=== PATIENT | female | born 1960 | race Caucasian/White ===

== ENCOUNTER 2017-03-31 09:16 | Observation (INO) ==
--- NOTE | 2017-03-31 10:46 | Emergency Department Note ---
Disposition Clinical Impression: Lactic acid blood increased, Tremors of nervous system Leukocytosis Qualifiers: Leukocytosis type: unspecified Qualified Code(s): D72.829 - Elevated white blood cell count, unspecified Disposition: Admitted As Inpatient Condition: Fair Referrals: Keisha Beckett CNP [Primary Care Provider] - Forms: Work/School Release, ED Satisfaction Letter General Adult HPI - General Chief complaint: ED General Medical Stated complaint: Shaking hands/dropping things Time Seen by Provider: 03/31/17 09:36 Source: patient Limitations: no limitations Nursing Notes Reviewed: Yes Vital Signs Reviewed: Yes - History of Present Illness HPI Narrative: I did review the previous record, the patient does take Neurontin and Wellbutrin as well as other medications. She presents with generalized tremors which have been going on for several months but worse the last several days. Does feel like she was dropping objects but this is not localized to the either right or left hand. She does have a primary care doctor who prescribes her medications. She states she has not taken either Neurontin or Wellbutrin today. I did look at the pill bottle and felt 90 Neurontin 300 mg capsules on March 29 and I did count the pills and there were 78 left. She denies any slurred speech, facial droop, confusion, numbness or unilateral weakness of the extremities. No fever, vomiting, blood in the urine or stool. She denies any head, neck, chest, abdomen or back. Social history: No smoking, alcohol, no history of intravenous drug use Pain Scale: 6 - Related Data Home Medications Medication Instructions Recorded Confirmed Cyclobenzaprine [Flexeril] 10 mg PO TID PRN 05/13/16 03/31/17 Levothyroxine [Synthroid] 100 mcg PO QAM 05/13/16 03/31/17 Lisinopril [Zestril] 40 mg PO DAILY 05/13/16 03/31/17 Calcium Carbonate [Tums] 1,000 mg PO Q4HR PRN 07/01/16 03/31/17 Estrogen, Con/M-Proges Acet 1 tab PO DAILY 07/01/16 03/31/17 [Prempro 0.625-2.5 mg Tablet] Meloxicam [Mobic] 15 mg PO DAILY 07/01/16 03/31/17 Multivit-Min/FA/Lycopen/Lutein 1 tab PO DAILY 03/31/17 03/31/17 [Centrum Silver Tablet] Previous Rx's Medication Instructions Recorded Ondansetron [Zofran] 4 mg PO Q8HR #20 tablet 05/17/16 Gabapentin [Neurontin] 300 mg PO TID #90 capsule 07/05/16 Allergies Allergy/AdvReac Type Severity Reaction Status Date / Time pregabalin [From Lyrica] AdvReac See Verified 03/31/17 09:29 Comments Past Medical History - Past Medical History Medical history: Reports: hypertension, thyroid disease Surgical history: Reports: cholecystectomy Psychiatric history: Reports: depression - Social History Smoking Status: Current every day smoker Smokeless Tobacco Status: Yes Alcohol use: Reports: none Drug use: Reports: none Physical Exam CONSTITUTIONAL: Well-appearing; well-nourished; A&O X3, in no apparent distress , no tremors HEAD: Normocephalic; atraumatic. EYES: PERRL, EOMI, no scleral icterus, no nystagmus NOSE: The nose is normal in appearance without rhinorrhea NECK: Supple without rigidity, no ADRIANA RESP: Normal chest excursion with respiration; breath sounds clear and equal bilaterally; no wheezes, rhonchi, or rales CARD: Regular rhythm, without murmurs, rub or gallop ABD: Non-distended; non-tender, soft, without rigidity, rebound or guarding SKIN: Normal for age and race; warm and dry; no apparent lesions, no rash NEUROLOGICAL: Patient is alert and oriented times three. Cranial nerves III- XII are intact. Sensory and motor functions are intact. Strength is 5/5 for flexion and extension in all 4 extremities. Patellar DTRS are equal and intact. Finger to nose testing is equal and normal bilaterally. - General Limitations: no limitations General appearance: alert Course Vital Signs Temperature 98.2 F 03/31/17 09:29 Pulse Rate 72 03/31/17 09:29 Respiratory Rate 20 03/31/17 09:29 Blood Pressure 103/66 03/31/17 09:29 O2 Sat by Pulse Oximetry 95 03/31/17 09:29 Temperature 98.2 F 03/31/17 09:29 Pulse Rate 72 03/31/17 09:29 Respiratory Rate 20 03/31/17 09:29 Blood Pressure 103/66 03/31/17 09:29 O2 Sat by Pulse Oximetry 95 03/31/17 09:29 Oxygen Delivery Oxygen Delivery Room Air Medical Decision Making - MDM Narrative Medical decision making narrative: The patient currently does not have any tremors and I did have her hold both her hands out she did not have a tremor. She is speaking normally. This could be medication related but I do not suspect intracranial mass or hemorrhage or stroke or other life-threatening abnormality. Labs are ordered and if these are negative the patient will be discharged home to follow up with primary care. [id number] I did review the patient's test results and does have significant leukocytosis so I added on a lactate and it turns out that that is elevated also so I ordered a urine which does show bacteriuria but many squamous epithelial cells as well as a chest x-ray which is negative. She does have some minimal elevation in the creatinine level was could indicate that she does have dehydration and IV fluids are ordered. Patient does have blood cultures and I did write for a dose of Zosyn. The patient will be admitted to the hospital for further evaluation. I do not suspect bacterial meningitis or surgical intra -abdominal process. I did speak with the hospitalist who accepts patient for admission 1327 I did speak with the hospitalist who came down to the emergency department to see the patient in on his exam he does have abdominal pain with palpation so requests a abdomen and pelvis CT scan with oral contrast and I did order the test. 1333 - Medical Records Medical records reviewed: Yes I reviewed the patient's medical records. - Lab Data Lab results reviewed: Yes I reviewed the patient's lab results. Result diagrams: 03/31/17 10:49 03/31/17 11:28 Lab Results 03/31/17 03/31/17 03/31/17 Range/Units 10:49 10:49 11:27 WBC 19.9 H (4.3-11.1) K/mcL RBC 4.32 (3.82-4.97) M/mcL Hgb 12.7 (11.5-15.4) g/dL Hct 38.7 (35.3-44.9) % MCV 89.6 (83.0-100.0) fL MCH 29.4 (28.0-33.3) pg MCHC 32.8 (31.6-35.5) g/dL RDW 13.8 (11.5-14.5) % Plt Count 319 (140-400) K/mcL MPV 8.6 L (9.4-12.4) fL Sodium (136-145) mEq/L Potassium (3.5-4.5) mEq/L Chloride (98-109) mEq/L Carbon Dioxide (19-29) mEq/L BUN (7-20) mg/dL Creatinine (0.57-1.11) mg/dL Est GFR ( Amer) (> 60) Est GFR (Non-Af Amer) (> 60) BUN/Creatinine Ratio (6-26) Glucose (70-99) mg/dL Calculated Osmolality (280-300) Lactic Acid 3.4 H (0.5-2.2) mmol/L Calcium (8.6-10.8) mg/dL TSH (0.350-4.840) mcIU/mL Free T4 (0.70-1.48) ng/dl Urine Color (Yellow) Urine Clarity (Clear) Urine pH (5.0-8.0) pH Units Ur Specific [place] (1.010-1.025) Urine Protein (Neg-Trace) mg/dL Urine Glucose (UA) (Normal) mg/dL Urine Ketones (Negative) mg/dL Urine Blood (Negative) Urine Nitrite (Negative) Urine Bilirubin (Negative) Urine Urobilinogen (Normal) mg/dL Ur Leukocyte Esterase (Negative) Urine Microscopic RBC (0-3) per hpf Urine Microscopic WBC (0-3) per hpf Ur Squamous Epith Cells (None-Few) per lpf Urine Bacteria (None-Few) per hpf Hyaline Casts (None-Few) per lpf Specimen Rejected Hemolyzed 03/31/17 03/31/17 03/31/17 Range/Units 11:28 11:28 11:45 WBC (4.3-11.1) K/mcL RBC (3.82-4.97) M/mcL Hgb (11.5-15.4) g/dL Hct (35.3-44.9) % MCV (83.0-100.0) fL MCH (28.0-33.3) pg MCHC (31.6-35.5) g/dL RDW (11.5-14.5) % Plt Count (140-400) K/mcL MPV (9.4-12.4) fL Sodium 129 L (136-145) mEq/L Potassium 4.7 H (3.5-4.5) mEq/L Chloride 98 (98-109) mEq/L Carbon Dioxide 22 (19-29) mEq/L BUN 19 (7-20) mg/dL Creatinine 1.37 H (0.57-1.11) mg/dL Est GFR ( Amer) 48 L (> 60) Est GFR (Non-Af Amer) 40 L (> 60) BUN/Creatinine Ratio 14 (6-26) Glucose 95 (70-99) mg/dL Calculated Osmolality 270 L (280-300) Lactic Acid (0.5-2.2) mmol/L Calcium 10.1 (8.6-10.8) mg/dL TSH 1.150 (0.350-4.840) mcIU/mL Free T4 0.51 L (0.70-1.48) ng/dl Urine Color Yellow (Yellow) Urine Clarity Cloudy A (Clear) Urine pH 5.5 (5.0-8.0) pH Units Ur Specific [place] 1.020 (1.010-1.025) Urine Protein Negative (Neg-Trace) mg/dL Urine Glucose (UA) Normal (Normal) mg/dL Urine Ketones Negative (Negative) mg/dL Urine Blood Negative (Negative) Urine Nitrite Negative (Negative) Urine Bilirubin Negative (Negative) Urine Urobilinogen Normal (Normal) mg/dL Ur Leukocyte Esterase Trace H (Negative) Urine Microscopic RBC 0-3 (0-3) per hpf Urine Microscopic WBC 0-3 (0-3) per hpf Ur Squamous Epith Cells Many H (None-Few) per lpf Urine Bacteria Moderate H (None-Few) per hpf Hyaline Casts None Seen (None-Few) per lpf Specimen Rejected - Radiology Data Radiology results reviewed: Yes I reviewed the patient's radiology results.
[2017-03-31 10:55] LABS: Hematocrit 38.7 % (35.3-44.9); Hemoglobin 12.7 g/dL (11.5-15.4); Mean Corpuscular HGB Conc 32.8 g/dL (31.6-35.5); Mean Corpuscular Hemoglobin 29.4 pg (28.0-33.3); Mean Corpuscular Volume 89.6 fL (83.0-100.0); Mean Platelet Volume 8.6 fL (9.4-12.4); Platelet Count 319 K/mcL (140-400); Red Blood Count 4.32 M/mcL (3.82-4.97); Red Cell Distribution Width 13.8 % (11.5-14.5)
[2017-03-31 11:51] LABS: Calcium 10.1 mg/dL (8.6-10.8); Potassium 4.7 mEq/L (3.5-4.5)
[2017-03-31 11:56] LABS: Bilirubin,Urine Negative (Negative); Blood,Urine Negative (Negative); Clarity,Urine Cloudy (Clear); Color,Urine Yellow (Yellow); Glucose,Urine (UA) Normal (Normal); Ketones,Urine Negative (Negative); Leukocyte Esterase,Urine Trace (Negative); Nitrite,Urine Negative (Negative); PH,Urine 5.5 pH Units (5.0-8.0); Protein,Urine Negative (Neg-Trace); Urobilinogen,Urine Normal (Normal)
[2017-03-31 11:59] LABS: Bacteria,Urine Moderate per hpf (None-Few); Hyaline Casts,Urine None Seen per lpf (None-Few); Squamous Epithelial Cell,Urine Many per lpf (None-Few); WBC,Urine 0-3 per hpf (0-3)
[2017-03-31 12:10] LABS: RBC,Urine 0-3 per hpf (0-3)
[2017-03-31 12:15] LABS: Thyroid Stimulating Hormone 1.15 mcIU/mL (0.350-4.840)
[2017-03-31] MEDS ORDERED: 0.9 % Sodium Chloride 1,000 ML IVC ONE ×2 (12:26→12:27)
[2017-03-31] MEDS ORDERED: Piperacillin/Tazobactam 4.5 GM in D5% in Water (Mini-Bag+) 100 ML IVPB ONE (12:31)
--- NOTE | 2017-03-31 13:47 | Event Note ---
Date of Encounter: 03/31/17 Time of Encounter: 13:44 1. Consider possible acute diverticulitis/colitis versus possible acute appendicitis Abdominal pain with elevated white blood cell count and elevated lactic acid, chronic diarrhea. Keep nothing by mouth, start IV ciprofloxacin and Flagyl. IV fluids CT scan of the abdomen with contrast, consider surgical consult depending on CT scan findings 2. Acute renal failure likely secondary to dehydration, continue IV fluids 3. History of ADHD 4. Hypothyroidism 5. Lactic acidosis next 6. Chronic hyponatremia 7. Hypertension, stable Protonix IV for GI prophylaxis and subcutaneous heparin for DVT prophylaxis. Patient will be admitted for observation. Her status may be switched to inpatient depending on findings. Time spent on this admission 40 minutes. H&P will be performed by EMMY Sanchez
[2017-03-31] MEDS ORDERED: Ondansetron ODT 4 MG TAB.RAPDIS SL PRN (14:03)
[2017-03-31] MEDS ORDERED: Naloxone 0.4 MG/ML INJ IVP PRN (14:03)
[2017-03-31] MEDS ORDERED: Acetaminophen 325 MG TABLET PO PRN (14:03)
--- NOTE | 2017-03-31 14:20 | Internal Med History&Physical ---
<Tonio Rebollar H - Last Filed: 03/31/17 15:17> Date of Encounter: 03/31/17 Internal Medicine - H&P: HPI History of present illness: Ms. Bermeo is a 56 year old female Internal Medicine - H&P: Meds Cyclobenzaprine [Flexeril] 10 mg PO TID PRN 05/13/16 [History] Levothyroxine [Synthroid] 100 mcg PO QAM 05/13/16 [History] Lisinopril [Zestril] 40 mg PO DAILY 05/13/16 [History] Ondansetron [Zofran] 4 mg PO Q8HR #20 tablet 05/17/16 [Rx] Calcium Carbonate [Tums] 1,000 mg PO Q4HR PRN 07/01/16 [History] Estrogen, Con/M-Proges Acet [Prempro 0.625-2.5 mg Tablet] 1 tab PO DAILY [History] Meloxicam [Mobic] 15 mg PO DAILY 07/01/16 [History] Gabapentin [Neurontin] 300 mg PO TID #90 capsule 07/05/16 [Rx] Multivit-Min/FA/Lycopen/Lutein [Centrum Silver Tablet] 1 tab PO DAILY 03/31/17 [ History] Allergies pregabalin [From Lyrica] Adverse Reaction (Verified 03/31/17 09:29) See Comments swells up All Systems PM: A 10-system review of systems was performed and is negative for pertinent findings except as documented above in the HPI. - Constitutional Vitals: Temp Pulse Resp BP Pulse Ox 98.2 F 82 18 120/66 96 03/31/17 09:29 03/31/17 15:05 03/31/17 15:13 03/31/17 15:13 03/31/17 15:05 Internal Med - H&P Results - Labs CBC & Chem 7: 03/31/17 10:49 03/31/17 11:28 - Attending Attestation 1. Consider possible acute diverticulitis/colitis versus possible acute appendicitis Abdominal pain with elevated white blood cell count and elevated lactic acid, chronic diarrhea. Keep nothing by mouth, start IV ciprofloxacin and Flagyl. IV fluids CT scan of the abdomen with contrast, consider surgical consult depending on CT scan findings 2. Acute renal failure likely secondary to dehydration, continue IV fluids 3. History of ADHD 4. Hypothyroidism 5. Lactic acidosis next 6. Chronic hyponatremia 7. Hypertension, stable Protonix IV for GI prophylaxis and subcutaneous heparin for DVT prophylaxis. Patient will be admitted for observation. Her status may be switched to inpatient depending on findings. Time spent on this admission 40 minutes. For this encounter, I have reviewed the [employer] or PA documentation, treatment plan, and medical decision making; and I have had face to face time with this patient. <SanchezCarrie - Last Filed: 03/31/17 19:03> Date of Encounter: 03/31/17 Time of Encounter: 14:16 Assessment and Plan (1) Colitis Current visit: Yes Status: Acute Patient with elevated WBC and lactate. CT abd/pelvis consistent with colitis. Continue cipro and flagyl. Check GI panel. May eat diet as tolerated with low residue, low fat diet. (2) Leukocytosis Current visit: Yes Status: Acute WBC of 19.9, combined with lactic acidosis of 3.4, concern for infection of unknown source. Patient afebrile and VSS. Patient denies cough or dysuria. CXR shows no acute process. UA not overly concerning for infection. Patient with history of colitis and diverticulitis and reports occasional abdominal pain. She has tenderness to palpation on exam. Suspect abdominal etiology of infection. Blood cultures sent CT Abd/Pelvis with oral contrast ordered GI panel stool ordered. Cipro and flagyl IVPB IV fluids 0.9NS at 100mL/hr after 2L bolus. Qualifiers: Leukocytosis type: unspecified Qualified Code(s): D72.829 - Elevated white blood cell count, unspecified (3) CAESAR (acute kidney injury) Current visit: Yes Status: Acute Creatinine 1.37, up from previous of 0.94 in September. Patient reports normal appetite and no diarrhea. May be secondary to infection. 2L fluid bolus ordered by ED, will continue with 0.9NS at 100mL/hr. Hold meloxicam and lisinopril. Recheck chemistry in the morning. (4) Hyponatremia Current visit: Yes Status: Acute Sodium of 129, unchanged from previous value in September. She is getting IV fluids (2L bolus followed by 0.9NS at 100ml/hr). Recheck chemistry in the morning. (5) Lactic acid blood increased Current visit: Yes Status: Acute Lactate of 3.4 today. Likely secondary to infection and dehydration. Will recheck after fluids. (6) Tremors of nervous system Current visit: Yes Status: Acute Patient presented with tremors of bilateral hands, dropping things. May be related to her infection and will see if there is improvement after treatment of infection. CT of head showed no acute abnormality. Patient does take neurontin. (7) DVT prophylaxis Current visit: Yes Status: Acute anti-embolic stockings lovenox SQ daily Internal Medicine - H&P: HPI Chief complaint: tremors Admitted From: Emergency Dept Plans for Post Hospital Care: Home History of present illness: Ms. Bermeo is a 56 year old female with hypertension, hypothyroidism, history of episodes of colitis and diverticulitis, presents to emergency room today with complaints of bilateral hand tremors. Patient reports that her hands have been trembling last week or so, she is been dropping things frequently as well. Patient denies any lightheadedness, dizziness, chest pain, palpitations, shortness of breath or cough. Patient denies any fever or sweats, reports occasional chills last week. Patient denies any nausea or vomiting. She does report occasional abdominal pain, reporting that she has had constipation for the last 4 days but had a bowel movement this morning. Evaluation in the emergency department revealed elevated white blood cell count of 19.9, elevated lactic acid of 3.4, concerning for infection. She also displayed a Ki-1 with creatinine of 1.37, up from previous of 0.94 in September. She was hyponatremic with sodium of 129, although this appears to be a chronic issue with her. Chest x-ray showed no acute process, urinalysis is not overly concerning for infection. CT of the head and CT of the abdomen and pelvis are pending. Blood cultures were drawn and sent. Patient was given 2 L of IV fluids as well as a dose of Zosyn in the emergency department. Suspect abdominal etiology of her infection given her history of colitis, diverticulitis and reports of occasional abdominal pain. On exam, patient alert and oriented, in no acute distress. Heart has regular rate and rhythm, lungs are clear bilaterally to auscultation. Abdomen is soft, with positive bowel sounds in all 4 quadrants, she is tender to palpation, more so in the right and left lower quadrants. No peripheral edema, peripheral pulses intact. Past Med Surg Social Fam HX - Past Medical History Medical history: hypertension, thyroid disease Psychiatric history: depression - Past Surgical History Surgical History: cholecystectomy - Social History Smoking Status: Current every day smoker Smokeless Tobacco Status: Yes Alcohol use: none Drug use: none - Family History Mother Living Status: Hx Family Neurologic Disorders: Yes (Parkinsons) Father Living Status: Still Living Hx Family Cardiac Disorders: Yes (Valvular Disease) All Systems PM: A 10-system review of systems was performed and is negative for pertinent findings except as documented above in the HPI. - Constitutional Constitutional: chills, no fever(s), no night sweats - EENT Eyes: no change in vision, no discharge, no pain, no photophobia Ears: no ear discharge, no ear pain, no tinnitus Nose, mouth and throat: no dysphagia, no nasal discharge, no neck pain, no sore throat - Cardiovascular Cardiovascular ROS IM: no chest pain, no diaphoresis, no dyspnea, no lightheadedness, no palpitations, no syncope - Respiratory Respiratory: no cough, no dyspnea, no wheezing, no excessive phlegm production - Gastrointestinal Gastrointestinal: abdominal pain, constipation, no diarrhea, no hematemesis, no hematochezia, no melena, no nausea, no vomiting - Genitourinary Genitourinary: no change in urinary stream, no dysuria, no flank pain, no hematuria - Musculoskeletal Musculoskeletal ROS IM: no numbness, no tingling - Integumentary Integumentary IM: no rash, no unusual bruising - Neurological Neurological ROS: tremor(s) (bilateral hands), no confusion, no convulsions, no focal weakness, no numbness, no tingling - Hematologic/Lymphatic Hematologic/Lymphatic: no easy bruising - Constitutional Vitals: Temp Pulse Resp BP Pulse Ox 98.2 F 72 20 103/66 95 03/31/17 09:29 03/31/17 09:29 03/31/17 09:29 03/31/17 09:29 03/31/17 09:29 General appearance: Present: A&O X 3, pleasant, no acute distress - Head Head exam: Present: atraumatic, normocephalic - Eye Eye exam: Present: PERRL, conjuntiva pink, sclera anicteric Pupils: Present: PERRL - Neck Neck exam general surgery: Present: supple, trachea midline. Absent: lymphadenopathy - Respiratory Respiratory exam: Present: CTAB. Absent: accessory muscle use, rales, rhonchi, wheezes - Cardiovascular Cardiovascular exam: Present: RRR, +S1, +S2. Absent: diastolic murmur, gallop, rubs, systolic murmur - GI/Abdominal GI/Abdominal exam: Present: normal bowel sounds, soft, tenderness, no peritoneal signs. Absent: distended - Extremities Exam Extremities exam: Present: warm, radial pulses palpable and symetrical. Absent : calf tenderness, cyanotic, pedal edema - Neurological Exam Neurological exam: Present: CN II-XII intact, oriented X3, no focal deficits. Absent: pronater drift, facial droop, speech deficit - Skin Skin exam: Present: dry, intact Internal Med - H&P Results - Labs CBC & Chem 7: 03/31/17 10:49 03/31/17 11:28 Labs: All Lab Results (24 Hours) 03/31/17 03/31/17 03/31/17 Range/Units 10:49 10:49 11:27 WBC 19.9 H (4.3-11.1) K/mcL RBC 4.32 (3.82-4.97) M/mcL Hgb 12.7 (11.5-15.4) g/dL Hct 38.7 (35.3-44.9) % MCV 89.6 (83.0-100.0) fL MCH 29.4 (28.0-33.3) pg MCHC 32.8 (31.6-35.5) g/dL RDW 13.8 (11.5-14.5) % Plt Count 319 (140-400) K/mcL MPV 8.6 L (9.4-12.4) fL Sodium (136-145) mEq/L Potassium (3.5-4.5) mEq/L Chloride (98-109) mEq/L Carbon Dioxide (19-29) mEq/L BUN (7-20) mg/dL Creatinine (0.57-1.11) mg/dL Est GFR ( Amer) (> 60) Est GFR (Non-Af Amer) (> 60) BUN/Creatinine Ratio (6-26) Glucose (70-99) mg/dL Calculated Osmolality (280-300) Lactic Acid 3.4 H (0.5-2.2) mmol/L Calcium (8.6-10.8) mg/dL TSH (0.350-4.840) mcIU/mL Free T4 (0.70-1.48) ng/dl Urine Color (Yellow) Urine Clarity (Clear) Urine pH (5.0-8.0) pH Units Ur Specific [place] (1.010-1.025) Urine Protein (Neg-Trace) mg/dL Urine Glucose (UA) (Normal) mg/dL Urine Ketones (Negative) mg/dL Urine Blood (Negative) Urine Nitrite (Negative) Urine Bilirubin (Negative) Urine Urobilinogen (Normal) mg/dL Ur Leukocyte Esterase (Negative) Urine Microscopic RBC (0-3) per hpf Urine Microscopic WBC (0-3) per hpf Ur Squamous Epith Cells (None-Few) per lpf Urine Bacteria (None-Few) per hpf Hyaline Casts (None-Few) per lpf Specimen Rejected Hemolyzed 03/31/17 03/31/17 03/31/17 Range/Units 11:28 11:28 11:45 WBC (4.3-11.1) K/mcL RBC (3.82-4.97) M/mcL Hgb (11.5-15.4) g/dL Hct (35.3-44.9) % MCV (83.0-100.0) fL MCH (28.0-33.3) pg MCHC (31.6-35.5) g/dL RDW (11.5-14.5) % Plt Count (140-400) K/mcL MPV (9.4-12.4) fL Sodium 129 L (136-145) mEq/L Potassium 4.7 H (3.5-4.5) mEq/L Chloride 98 (98-109) mEq/L Carbon Dioxide 22 (19-29) mEq/L BUN 19 (7-20) mg/dL Creatinine 1.37 H (0.57-1.11) mg/dL Est GFR ( Amer) 48 L (> 60) Est GFR (Non-Af Amer) 40 L (> 60) BUN/Creatinine Ratio 14 (6-26) Glucose 95 (70-99) mg/dL Calculated Osmolality 270 L (280-300) Lactic Acid (0.5-2.2) mmol/L Calcium 10.1 (8.6-10.8) mg/dL TSH 1.150 (0.350-4.840) mcIU/mL Free T4 0.51 L (0.70-1.48) ng/dl Urine Color Yellow (Yellow) Urine Clarity Cloudy A (Clear) Urine pH 5.5 (5.0-8.0) pH Units Ur Specific [place] 1.020 (1.010-1.025) Urine Protein Negative (Neg-Trace) mg/dL Urine Glucose (UA) Normal (Normal) mg/dL Urine Ketones Negative (Negative) mg/dL Urine Blood Negative (Negative) Urine Nitrite Negative (Negative) Urine Bilirubin Negative (Negative) Urine Urobilinogen Normal (Normal) mg/dL Ur Leukocyte Esterase Trace H (Negative) Urine Microscopic RBC 0-3 (0-3) per hpf Urine Microscopic WBC 0-3 (0-3) per hpf Ur Squamous Epith Cells Many H (None-Few) per lpf Urine Bacteria Moderate H (None-Few) per hpf Hyaline Casts None Seen (None-Few) per lpf Specimen Rejected - Impressions ITS Impressions Chest X-Ray 03/31/17 11:04 IMPRESSION: No acute process. D/ / Dejuan Oakes MD / Dejuan Oakes MD Interpreting Provider: Dejuan Oakes MD - Diagnostic Studies Chest x-ray Additional comments: Chest X-Ray 03/31/17 11:04
[2017-03-31] MEDS: Gabapentin 300 MG CAPSULE PO SCH ×2 (16:59→20:30)
[2017-03-31] MEDS: 0.9 % Sodium Chloride 1,000 ML IVC SCH (16:59)
[2017-03-31] MEDS: MetroNIDAZOLE 500 MG/100 ML 500 MG/100 ML BAG IVPB SCH (16:59)
[2017-03-31] MEDS: *HR* HYDROcodone/Acet 5/325 mg TABLET PO PRN (20:31)
[2017-04-01] MEDS: MetroNIDAZOLE 500 MG/100 ML 500 MG/100 ML BAG IVPB SCH ×3 (00:27→20:34)
[2017-04-01] MEDS: *HR* HYDROcodone/Acet 5/325 mg TABLET PO PRN ×4 (00:27→20:42)
[2017-04-01] MEDS: *HR* Enoxaparin 40 MG/0.4 ML SYRINGE SQ SCH (06:15)
[2017-04-01 06:32] LABS: Basophils % 0.2 %; Eosinophils % 0.2 %; Hematocrit 36.7 % (35.3-44.9); Hemoglobin 11.9 g/dL (11.5-15.4); Immature Granulocytes % 0.6 % (0-4); Lymphocytes # 1.1 K/mcL (0.6-4.6); Lymphocytes % 7.3 %; Mean Corpuscular HGB Conc 32.4 g/dL (31.6-35.5); Mean Corpuscular Hemoglobin 28.9 pg (28.0-33.3); Mean Corpuscular Volume 89.1 fL (83.0-100.0); Mean Platelet Volume 8.9 fL (9.4-12.4); Monocytes # 1.2 K/mcL (0.0-1.3); Monocytes % 8.2 %; Neutrophils # 12.4 K/mcL (1.6-8.9); Platelet Count 292 K/mcL (140-400); Red Blood Count 4.12 M/mcL (3.82-4.97); Red Cell Distribution Width 13.9 % (11.5-14.5); Segmented Neutrophils % 83.5 %
[2017-04-01 06:46] LABS: BUN/Creatinine Ratio 8 (6-26); Blood Urea Nitrogen 9 mg/dL (7-20); Calcium 8.8 mg/dL (8.6-10.8); Carbon Dioxide 25 mEq/L (19-29); Chloride 102 mEq/L (98-109); Glucose 129 mg/dL (70-99); Osmolality,Calculated 272 (280-300); Potassium 4.2 mEq/L (3.5-4.5); Sodium 131 mEq/L (136-145); eGFR For African Americans > 60 (> 60); eGFR For Non-African Americans 53 (> 60)
[2017-04-01] MEDS: Prempro 0.625/2.5 MG TABLET PO SCH (07:53)
[2017-04-01] MEDS: Gabapentin 300 MG CAPSULE PO SCH ×3 (07:53→20:43)
--- NOTE | 2017-04-01 15:41 | Internal Med Progress Note ---
Date of Encounter: 04/01/17 Time of Encounter: 08:50 - Assessment and plan (1) Colitis Current Visit: Yes Status: Acute Assessment and plan: Patient presents with abdominal pain, leukocytosis and mild lactic acidosis, noted to have CT changes concerning for nonspecific colitis in transverse and descending colon. Continue bowel rest, IV hydration, IV antibiotics- ciprofloxacin and Flagyl along with supportive care with when necessary antiemetics and pain control. Hold diet at this time. Ischemic versus infective colitis. Will need interval colonoscopy in 4-6 weeks after discharge. (2) Lactic acidosis Current Visit: Yes Status: Resolved Assessment and plan: Improved with IV hydration. (3) Diarrhea Current Visit: Yes Status: Acute Assessment and plan: Reports improvement at this time. Pending stool GI panel. Qualifiers: Diarrhea type: unspecified type Qualified Code(s): R19.7 - Diarrhea, unspecified (4) CAESAR (acute kidney injury) Current Visit: Yes Status: Acute (5) Hyponatremia Current Visit: Yes Status: Chronic Assessment and plan: Patient is noted to have chronic hyponatremia, likely due to the use of SSRIs and psychotropics. Currently improving. (6) Essential hypertension Current Visit: Yes Status: Chronic (7) Hypothyroidism Current Visit: Yes Status: Chronic Qualifiers: Hypothyroidism type: unspecified Qualified Code(s): E03.9 - Hypothyroidism , unspecified (8) Depressive disorder Current Visit: Yes Status: Chronic (9) Anxiety disorder Current Visit: Yes Status: Chronic Qualifiers: Anxiety disorder type: unspecified anxiety disorder Qualified Code(s): F41.9 - Anxiety disorder, unspecified - Subjective Interval history: Reports abdominal pain, improved nausea and diarrhea. No fever, chills, chest pain or shortness of breath. - Constitutional Vitals: Temp Pulse Resp BP Pulse Ox 98.2 F 86 17 98/65 96 04/01/17 15:08 04/01/17 15:08 04/01/17 15:08 04/01/17 15:08 04/01/17 15:08 General appearance: Present: mild distress, A&O X 3, answers questions appropriately - Respiratory Respiratory exam: Present: CTAB. Absent: accessory muscle use, rales, rhonchi, wheezes - Cardiovascular Cardiovascular exam: Present: RRR, +S1, +S2. Absent: diastolic murmur, gallop, rubs, systolic murmur - GI/Abdominal GI/Abdominal exam: Present: normal bowel sounds, soft (Obese, tenderness in upper abdomen and left lower quadrant), no peritoneal signs. Absent: distended , tenderness - Extremities Exam Extremities exam: Present: full ROM, warm, radial pulses palpable and symetrical. Absent: calf tenderness, cyanotic, pedal edema - Neurological Exam Neurological exam: Present: CN II-XII intact, oriented X3, no focal deficits. Absent: pronater drift, facial droop, speech deficit Internal Medicine: Result - Labs CBC & Chem 7: 04/01/17 05:36 04/01/17 05:36 Labs: Short CBC 04/01/17 Range/Units 05:36 WBC 14.9 H (4.3-11.1) K/mcL Hgb 11.9 (11.5-15.4) g/dL Hct 36.7 (35.3-44.9) % Plt Count 292 (140-400) K/mcL Neutrophils # 12.4 H (1.6-8.9) K/mcL BMP 04/01/17 05:36 Sodium 131 L Potassium 4.2 Chloride 102 Carbon Dioxide 25 BUN 9 D Creatinine 1.07 Glucose 129 H Calcium 8.8 - VTE Documentation of Mechanical Device: Intermittent pneumatic compression device Consult Discharge Plan - Plan Referrals: Keisha Beckett CNP [Primary Care Provider] - 04/12/17 3:15 pm
[2017-04-01 23:00] LABS: Adenovirus F 40/41 PCR Not detected (Not detect); Astrovirus PCR Not detected (Not detect); C.difficile Toxin A/B by PCR Not detected (Not detect); Campylobacter by PCR Not detected (Not detect); Cryptosporidium by PCR Not detected (Not detect); Cyclospora cayetanensis PCR Not detected (Not detect); E. coli O157 by PCR Not detected (Not detect); Entamoeba histolytica PCR Not detected (Not detect); Enteroaggregative E.coli(EAEC) Not detected (Not detect); Enteropathogenic E.coli(EPEC) Not detected (Not detect); Enterotoxigenic E.coli (ETEC) Not detected (Not detect); Giardia lamblia PCR Not detected (Not detect); Norovirus GI/GII PCR Not detected (Not detect); Plesiomonas shigelloides PCR Not detected (Not detect); Rotavirus A PCR Not detected (Not detect); Salmonella PCR Not detected (Not detect); Sapovirus PCR Not detected (Not detect); Shig/EnteroinvasiveE coli EIEC Not detected (Not detect); Shigalike tox-prod E coli STEC Not detected (Not detect); Vibrio PCR Not detected (Not detect); Vibrio cholerae PCR Not detected (Not detect); Yersinia enterocolitica PCR Not detected (Not detect)
[2017-04-02] MEDS: MetroNIDAZOLE 500 MG/100 ML 500 MG/100 ML BAG IVPB SCH ×3 (02:27→15:22)
[2017-04-02] MEDS: 0.9 % Sodium Chloride 1,000 ML IVC SCH ×2 (02:27→08:56)
[2017-04-02] MEDS: *HR* HYDROcodone/Acet 5/325 mg TABLET PO PRN ×3 (02:28→12:32)
[2017-04-02 05:23] LABS: Basophils % 0.3 %; Eosinophils # 0.2 K/mcL (0.0-0.6); Eosinophils % 1.2 %; Hematocrit 38.2 % (35.3-44.9); Hemoglobin 12.7 g/dL (11.5-15.4); Immature Granulocytes % 0.5 % (0-4); Lymphocytes # 1.7 K/mcL (0.6-4.6); Lymphocytes % 13.8 %; Mean Corpuscular HGB Conc 33.2 g/dL (31.6-35.5); Mean Corpuscular Hemoglobin 30.5 pg (28.0-33.3); Mean Corpuscular Volume 91.8 fL (83.0-100.0); Mean Platelet Volume 9.2 fL (9.4-12.4); Monocytes # 0.7 K/mcL (0.0-1.3); Monocytes % 5.7 %; Neutrophils # 9.6 K/mcL (1.6-8.9); Platelet Count 274 K/mcL (140-400); Red Blood Count 4.16 M/mcL (3.82-4.97); Segmented Neutrophils % 78.5 %
[2017-04-02 05:48] LABS: BUN/Creatinine Ratio 6 (6-26); Blood Urea Nitrogen 6 mg/dL (7-20); Calcium 9.1 mg/dL (8.6-10.8); Carbon Dioxide 22 mEq/L (19-29); Chloride 103 mEq/L (98-109); Glucose 105 mg/dL (70-99); Osmolality,Calculated 274 (280-300); Potassium 3.9 mEq/L (3.5-4.5); Sodium 133 mEq/L (136-145); eGFR For African Americans > 60 (> 60); eGFR For Non-African Americans 59 (> 60)
[2017-04-02] MEDS: *HR* Enoxaparin 40 MG/0.4 ML SYRINGE SQ SCH (06:03)
[2017-04-02] MEDS: Gabapentin 300 MG CAPSULE PO SCH ×3 (08:55→21:18)
[2017-04-02] MEDS: Prempro 0.625/2.5 MG TABLET PO SCH (10:51)
--- NOTE | 2017-04-02 12:04 | Internal Med Progress Note ---
Date of Encounter: 04/02/17 Time of Encounter: 10:55 - Assessment and plan (1) Colitis Current Visit: Yes Status: Acute Assessment and plan: Patient presents with abdominal pain, leukocytosis and mild lactic acidosis, noted to have CT changes concerning for nonspecific colitis in transverse and descending colon. Improving slowly. Start clear liquid diet, to advance as tolerated. Continue IV antibiotics-ciprofloxacin and Flagyl along with supportive care with when necessary antiemetics and pain control. Ischemic versus infective colitis. Will need interval colonoscopy in 4-6 weeks after discharge. (2) Lactic acidosis Current Visit: Yes Status: Resolved (3) Diarrhea Current Visit: Yes Status: Acute Assessment and plan: Reports improvement at this time. Stool GI panel negative for bacteria including C. difficile. Qualifiers: Diarrhea type: unspecified type Qualified Code(s): R19.7 - Diarrhea, unspecified (4) CAESAR (acute kidney injury) Current Visit: Yes Status: Acute Assessment and plan: Likely related to dehydration from GI losses. Serum creatinine noted to be improving with IV hydration. Continue to monitor closely, avoid nephrotoxic agents. (5) Hyponatremia Current Visit: Yes Status: Chronic Assessment and plan: Patient is noted to have chronic hyponatremia, likely due to the use of SSRIs and psychotropics. Currently improving. (6) Essential hypertension Current Visit: Yes Status: Chronic (7) Hypothyroidism Current Visit: Yes Status: Chronic Qualifiers: Hypothyroidism type: unspecified Qualified Code(s): E03.9 - Hypothyroidism , unspecified (8) Depressive disorder Current Visit: Yes Status: Chronic (9) Anxiety disorder Current Visit: Yes Status: Chronic Qualifiers: Anxiety disorder type: unspecified anxiety disorder Qualified Code(s): F41.9 - Anxiety disorder, unspecified - Subjective Interval history: Feels much better; reports improved abdominal pain and diarrhea; last bowel movement last night; - Constitutional Vitals: Temp Pulse Resp BP Pulse Ox 98.1 F 93 16 95/58 98 04/02/17 11:00 04/02/17 11:00 04/02/17 11:00 04/02/17 11:00 04/02/17 11:00 General appearance: Present: A&O X 3, answers questions appropriately - Respiratory Respiratory exam: Present: CTAB. Absent: accessory muscle use, rales, rhonchi, wheezes - Cardiovascular Cardiovascular exam: Present: RRR, +S1, +S2. Absent: diastolic murmur, gallop, rubs, systolic murmur - GI/Abdominal GI/Abdominal exam: Present: normal bowel sounds, soft (mild tenderness in LLQ, improving), no peritoneal signs. Absent: distended, tenderness Internal Medicine: Result - Labs CBC & Chem 7: 04/02/17 04:49 04/02/17 04:49 Labs: Short CBC 04/02/17 Range/Units 04:49 WBC 12.3 H (4.3-11.1) K/mcL Hgb 12.7 (11.5-15.4) g/dL Hct 38.2 (35.3-44.9) % Plt Count 274 (140-400) K/mcL Neutrophils # 9.6 H (1.6-8.9) K/mcL BMP 04/02/17 04:49 Sodium 133 L Potassium 3.9 Chloride 103 Carbon Dioxide 22 BUN 6 L Creatinine 0.98 Glucose 105 H Calcium 9.1 - VTE Documentation of Mechanical Device: Intermittent pneumatic compression device Consult Discharge Plan - Plan Referrals: Keisha Beckett CNP [Primary Care Provider] - 04/12/17 3:15 pm
[2017-04-03] MEDS: MetroNIDAZOLE 500 MG/100 ML 500 MG/100 ML BAG IVPB SCH ×2 (00:01→09:49)
[2017-04-03] MEDS: *HR* Enoxaparin 40 MG/0.4 ML SYRINGE SQ SCH (05:59)
[2017-04-03 07:08] VITALS: BP 105/70
[2017-04-03] MEDS: Gabapentin 300 MG CAPSULE PO SCH (09:50)
[2017-04-03] MEDS: Prempro 0.625/2.5 MG TABLET PO SCH (09:50)
--- NOTE | 2017-04-03 11:51 | Discharge Summary ---
Date of Encounter: 04/03/17 Time of Encounter: 11:49 - Discharge Diagnosis (1) Colitis Priority: Primary Status: Acute (2) Lactic acidosis Priority: Primary Status: Resolved (3) Diarrhea Priority: Primary Status: Acute Qualifiers: Diarrhea type: unspecified type Qualified Code(s): R19.7 - Diarrhea, unspecified (4) CAESAR (acute kidney injury) Priority: Primary Status: Resolved (5) Hyponatremia Priority: Primary Status: Chronic (6) Essential hypertension Priority: Secondary Status: Chronic (7) Hypothyroidism Priority: Secondary Status: Chronic Qualifiers: Hypothyroidism type: unspecified Qualified Code(s): E03.9 - Hypothyroidism , unspecified (8) Depressive disorder Priority: Secondary Status: Chronic (9) Anxiety disorder Priority: Secondary Status: Chronic Qualifiers: Anxiety disorder type: unspecified anxiety disorder Qualified Code(s): F41.9 - Anxiety disorder, unspecified - Discharge Medications Prescriptions: HYDROcodone/Acet 5/325 mg [[place] 5-325 mg] 1 tab PO Q4HR PRN #20 tab PRN Reason: Pain Ciprofloxacin HCl [Cipro] 500 mg PO BID #10 tablet metroNIDAZOLE [Flagyl] 500 mg PO TID #15 tablet Home Medications: Cyclobenzaprine [Flexeril] 10 mg PO TID PRN 05/13/16 [History] Levothyroxine [Synthroid] 100 mcg PO QAM 05/13/16 [History] Lisinopril [Zestril] 40 mg PO DAILY 05/13/16 [History] Ondansetron [Zofran] 4 mg PO Q8HR #20 tablet 05/17/16 [Rx] Calcium Carbonate [Tums] 1,000 mg PO Q4HR PRN 07/01/16 [History] Estrogen, Con/M-Proges Acet [Prempro 0.625-2.5 mg Tablet] 1 tab PO DAILY [History] Meloxicam [Mobic] 15 mg PO DAILY 07/01/16 [History] Gabapentin [Neurontin] 300 mg PO TID #90 capsule 07/05/16 [Rx] Multivit-Min/FA/Lycopen/Lutein [Centrum Silver Tablet] 1 tab PO DAILY 03/31/17 [ History] Ciprofloxacin HCl [Cipro] 500 mg PO BID #10 tablet 04/03/17 [Rx] HYDROcodone/Acet 5/325 mg [[place] 5-325 mg] 1 tab PO Q4HR PRN #20 tab 04/03/17 [ Rx] metroNIDAZOLE [Flagyl] 500 mg PO TID #15 tablet 04/03/17 [Rx] Allergies/Adverse Reactions: Allergies pregabalin [From Lyrica] Adverse Reaction (Verified 03/31/17 09:29) See Comments swells up Date of admission: 03/31/17 14:21 Primary care physician: Keisha Beckett, Discharging clinician: Vivian Riggs Anticipated date of discharge: 04/03/17 - Patient Status Disposition: Home, Self-Care Condition: Fair Functional capacity at discharge: independent ambulation Overall status at discharge: patient is progressing back to baseline - Discharge Instructions Follow Up With: Keisha Beckett, [employer] [Primary Care Provider] - 04/12/17 3:15 pm - Diet and Activity Activity: resume usual activities as tolerated Diet: low salt diet, other (full liquid and advance to soft, then regular diet) Hospital course: Ms. Bermeo is a 56 year old female who was admitted with abdominal pain, nausea and diarrhea. CT abdomen/pelvis done in the emergency room showed changes suggestive of sigmoid diverticulitis. Patient was given bowel rest, IV hydration, IV antibiotics-Levaquin and Flagyl along with supportive care with when necessary antiemetics and pain control. Her clinical condition gradually improved and she was able to tolerate oral diet. She was also noted to have leukocytosis and lactic acidosis at admission, which have currently resolved. She is doing much better today although she continues to have some left lower abdominal discomfort. She is medically stable for discharge and advised to follow up in the emergency room if her symptoms continue to worsen or if she develops fever, hematochezia, dizziness or vomiting, and she verbalized understanding. - Time Spent with Patient Total time spent providing and/or coordinating discharge services: Greater than 30 minutes (40 min) - Constitutional Vitals: Temp Pulse Resp BP Pulse Ox 98.2 F 85 18 105/70 98 04/03/17 07:05 04/03/17 07:05 04/03/17 07:05 04/03/17 07:05 04/03/17 07:05 General appearance: Present: A&O X 3, answers questions appropriately - GI/Abdominal GI/Abdominal exam: Present: normal bowel sounds, soft (mild tenderness in LLQ), no peritoneal signs. Absent: distended, tenderness - VTE Documentation of Mechanical Device: Intermittent pneumatic compression device
== END 2017-04-03 12:36 | disposition home or self-care (01) ==
LOC: EMEROO 09:16 → INTOOBSV 14:21 → 2NENU 14:21 → 3ANU 14:31
PROVIDERS: ADMIT Internal Medicine; ATTEND Internal Medicine